=== PATIENT | female | born 1970 | race Caucasian/White ===

== ENCOUNTER 2022-07-14 13:29 | Emergency (ER) | payer OTHER ==
--- OUTSIDE RECORDS SUMMARY | 2022-07-14 13:32 | XMS REPORT | Continuity of Care Document ---
:1970 Author Organization [facility] t Address [address] [place] [address] Care Team Providers Name Role Phone UNKNOWN, REFFERING Primary Care Physician Unavailable Doctor Unassigned, [place] Attending Clinician Unavailable CLAUDINE POTTS Attending Clinician Unavailable MARJAN LAY Attending Clinician Unavailable MARJAN LAY Admitting Clinician Unavailable Payers Payer Name Policy Type Policy Number Effective Date Expiration Date S ource MEDICARE PART A [id number] 2012 \T\ B 00:00:00 Problems Condition Condition Condition Status Onset Resolution Last Treating Co mments Source Name Details Category Date Date Treatment Clinician Date Encounter Encounter Disease Active 2012-08 Overview: Univers for for 0-18 Formattin ity of routine routine 00:00: g of this [place] gynecologi gynecologi 00 note Me dical rodriguez rodriguez might be Branch examinatio examinatio different n n from the original. 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 Per anil Quinn of Syphilis in 1988 noted in [facility]. ICD10 Diagnosis Term [employer] Tobacco Tobacco Disease Active 2012-08 Univers use use 0-18 ity of disorder disorder 00:00: [place] 00 Medical Branch Tubal Tubal Disease Active 2012-08 Univers ligation ligation 0-18 ity of status status 00:00: [place] 00 Medical Branch Irregular Irregular Disease Active 2012-08 Uni vers menstrual menstrual 0-18 ity of cycle cycle 00:00: [place] 00 Medical Branch Drug Drug Disease Active 2012-08 Univers abuse, abuse, 0-18 [place] Pathologic Pathologic Disease Active 2011-08 U nivers fracture fracture 0-05 ity of of of 00:00: [place] vertebrae vertebrae 00 Medi rodriguez Branch Severe Severe 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 ICD10 Diagnosis Term [employer] Allergies, Adverse Reactions, Alerts Allergy Allergy Status Severity Reaction(s) Onset Inactive Treating Comm ents Source Name Type Date Date Clinician NO KNOWN Drug Active Univers ALLERGIE Class ity of S [facility] Social History Social Habit Start Date Stop Date Quantity Comments Source History SDOH University o f Alcohol Frequency [place] M edical Branch History SDOH University o f Alcohol Std [place] Medical Drinks Branch History SDOH University o f Alcohol Binge [place] Medic al Branch History of Cigarette Smoker Universi ty of tobacco use [facility] Alcohol intake 2022-02-22 2022-02-22 Current drinker Unive rsity of 00:00:00 00:00:00 of alcohol [place] Medical (finding) Branch Tobacco use and 2013-05-31 2013-05-31 Smokeless tobacco Un iversity of exposure 00:00:00 00:00:00 non-user [facility] Alcohol Comment 2013-05-31 2013-05-31 occasional Universit y of 00:00:00 00:00:00 [facility] Tobacco Comment 2013-05-31 2013-05-31 1 package of Univers ity of 00:00:00 00:00:00 cigarettes in 2 [facility] ical days Branch Sex Ass[birth year] Universit y of 00:00:00 00:00:00 [facility] Smoking Status Start Date Stop Date Source Occasional tobacco smoker 2013-05-31 00:00:00 Un iversity of [facility] Medications Ordered Filled Start Stop Current Ordering Indication Dosage Frequency Signature Comments Components Source Medication Medication Date Date Medication? Clinician (SIG) Name Name hydrOXYzine 2019- Yes [id number] 25mg Take 1 Univers 25 mg 0-30 tablet by ity of tablet 00:00: mouth [place] 00 every 6 Medical (six) Branch hours as needed for Itching. sod 2018- Yes 1{bottl Use 1 Univers chlor-bicar 1-06 e} Bottle in ity of b-squeez 00:00: each [place] bottle 00 nostril 2 Medical (NEILMED (two) Branch SINUS RINSE times COMPLETE) daily. Use pkdv in hot shower 1 hour before bedtime promethazin 0 Yes 5mL Take 5 mL U nivers e-codeine 1-06 by mouth 4 ity of 6.25-10 00:00: (four) [place] mg/5 mL 00 times Medical syrup daily as Branch needed for Cough. HYDROcodone 2012-08 Yes 1{tbl} Take 1 Tab Univers -acetaminop 0-18 by mouth ity of hen 09:28: every 6 [place] (LORCET) 40 (six) Medical 10-650 mg hours as Branch per tablet needed. ALPRAZOLAM 2012-08 Yes Take by [place] [facility] ers (XANAX 0-18 mouth. ity of ORAL) 09:28: [address] Immunizations Ordered Filled Immunization Date Status Comments [facility] e Immunization Name Name TDAP 2013-02-28 [facility] 00:00:00 [facility] Procedures Procedure Date / Time Performing Clinician Source Performed INSURANCE CORRESPONDENCE 2022-03-26 05:01:00 Doctor Gregory, [facility] [place] [facility] Encounters Start End Encounter Admission Attending Care Care Encounter Source Date/Time Date/Time Type Type Clinicians Facility Department ID 2022-03-26 2022-03-26 Orders Doctor MATA [id number] Univers 00:00:00 00:00:00 Only Unassigned, GERDA [id number] ity of [place] [facility] [id number] [place] [id number] [facility] 009 Branch 2020-06-12 2020-06-12 Emergency X KATLYN WAMADISYN ERT [id number] [facility] 07:29:00 07:29:00 CLAUDINE parikh [facility] Results Test Description Test Time Test Comments Results Result Comments Source Chlamydia/GC Amplification 2017-02-17 09:40:00 Test Item Value Reference Range Interpretation Comme nts Chlamydia trachomatis, [place] (test code = 157652) Negative Negati ve N Neisseria gonorrhoeae, [place] (test code = 191916) Positive Negati ve A [id number] 08:55:00 Test Item Value Reference Range Interpretation Comments [place] (test code = LI) 0.56 mmol/L 0.6-1.2 L HIV [id number] 13:51:00 Test Item Value Reference Range Interpretation Comments HIV 1/2 Antibody Non-Reactive Non-Reactive N HIV1/2 Anti body screen (test code = result indicate s the HIV1/2AB) absence of HIV1 and YGJ9ynkkrztai.H owever, A Non-Reactive screen result does not rule out exposure orinfection. I f an acute infection is suspected, HIV RNA Quantitative is recommended. P24 Antigen (test Non-Reactive Non-Reactive N P24 Ag scr een result code = P24) indicates the a bsence of P24 antigen, which is anindicator of HIV-1 acute infection.Howev er, A Non-Reactive sc reen does not rule o ut exposure or infection.If ac [place] HIV-1 is suspec jamison, HIV RNA Quantit ative is recommended. RPR, [id number] 17:51:00 Test Item Value Reference Range Interpretation Comments RPR (test code = RPR) Non-Reactive Non-Reactive N Thyroid Stimulating Hormone (TSH)2017-02-08 15:01:00 Test Item Value Reference Range Interpretation Comments TSH (test code = TSH) 3.34 mIU/mL 0.270-4.200 N Urinalysis [id number] 13:35:00 Test Item Value Reference Range Interpretation Comments Color (test code = COLOR) Yellow Yellow,Straw,Pl N yellow Clarity (test code = Clear Clear N CLAR) Specific [place] (test 1.005 1.001-1.035 N code = SPGR) pH (test code = PH) 6.5 5.0-9.0 N Ketone (test code = KET) Negative mg/dL Negative N Glucose (test code = Negative mg/dL Negative N GLUCUR) Protein (test code = Negative mg/dL Negative N PROT) Bilirubin (test code = Negative mg/dL Negative N BILI) Occult Blood (test code = Negative Negative N UDOB) Urobilinogen (test code = 0.2 mg/dL 0.2-1.0 N UROB) Nitrite (test code = NIT) Negative Negative N Leuk Esterase (test code Moderate Negative A = LEUK) Micros Exam (test code = Indicated MEXAM) Epithelial Cells (test 6-9 /LPF 0-30 A code = EPI) WBC, Urine (test code = 2-5 /HPF 0-5 A UWBC) RBC, Urine (test code = 0-3 /HPF 0-5 A URBC) Bacteria (test code = Few /HPF BACT) Trichomonas (test code = Moderate /HPF TRICH) [id number] 13:30:00 Test Item Value Reference Range Interpretation Comments Amphetamine (test code Negative Negative N For d iagnostic purposes = AMPH) only, positive results should always b e assessedin conjunctionwith the patient's medic al history,clinica l examination and otherfindings.T o fulfill legal requirements, a more specific altern ate chemical method must be used inorder to obtain a Confirmed yuly lytical result. GC/MS i s the preferred confi rmatory method. Barbiturates (test Negative Negative N code = RENE) Benzodiazepine (test Negative Negative N code = RON) Cocaine (test code = Negative Negative N COCA) Methadone (test code = Negative Negative N MTHD) Opiates (test code = Negative Negative N OPIA) PCP (test code = PCP) Negative Negative N Propoxyphene (test Negative Negative N code = PROPOX) THC (test code = THC) Negative Negative N Comprehensive Metabolic [id number] 13:26:00 Test Item Value Reference Range Interpretation Comments Sodium (test code = 134 mmol/L 135-145 L NA) Potassium (test 4.6 mmol/L 3.5-5.1 N code = K) Chloride (test code 97 mmol/L 98-105 L = CL) Carbon Dioxide 21 mmol/L 22-29 L (test code = CO2) Glucose (test code 107 mg/dL 70-115 N = GLU) Blood Urea Nitrogen 7 mg/dL 6-20 N (test code = BUN) Creatinine (test 0.6 mg/dL 0.5-0.9 N code = CREAT) Calcium (test code 9.7 mg/dL 8.3-10.5 N = CA) Prot Total (test 7.9 g/dL 6.4-8.3 N code = TP) Albumin (test code 4.5 g/dL 3.5-5.2 N = ALB) A/G Ratio (test 1.3 Ratio code = AGRATIO) Globulin (test code 3.4 2.9-3.1 H = GLOB) Bili Total (test 0.4 mg/dL 0.1-0.9 N code = TBIL) Alk Phos (test code 85 U/L 35-104 N = APHOS) AST (test code = 31 U/L 1-32 N AST) ALT (test code = 48 U/L 1-33 H ALT) BUN/Creatinine 11.7 Ratio (test code = BCRATIO) Anion Gap (test 16 mmol/L 7-16 N code = AGAP) Estimated GFR (test >60 eGFR (es timated code = GFR) mL/min/1.73m2 Glomerular Farshad tration Rate) is an est imated value,calculate d from the patient's s jennifer creatinine usin g the MDRD equation.I t is NOT the patient 's actual GFR. The eGFR provides a more clinicallyusefu l measure of kidn ey disease than se rum creatinine alone.This calculation trudy es sex and race into account, if the informationis provided. If th e race is not provided , and the patient isAfrican-Ameri can, multiply by 1.2 12. If sex is not prov ided, and thepatient is female, multipl y by 0.742. Results for patients <18 ye ars ofage have not been validated by th e MDRD study and shoul d be interpretedwith caution.eGFR Re sult Interpretation: eGFR > or = 60 is in t he Normal RangeeGF R < 60 may mean kidney diseaseeGFR < 1 5 may mean kidney failureRange s recommended by the National Kidney Foundation,http ://nkd ep.nih.gov Alcohol/Ethanol, [id number] 13:26:00 Test Item Value Reference Range Interpretation Comments Alcohol, Ethyl <0.01 g/dL 0.00-0.01 N Intoxicated 0 .080 g/dL (test code = ETOH) or more BHCG, Urine, [id number] 13:23:00 Test Item Value Reference Range Interpretation Comments Preg Qual [Ur] (test code = HUHCG) Negative Negative N CBC with [id number] 13:09:00 Test Item Value Reference Range Interpretation Comments WBC (test code = WBC) 12.2 K/cumm 4.4-10.5 H RBC (test code = RBC) 4.31 M/cumm 3.75-5.20 N Hemoglobin (test code = HGB) 14.0 gm/dL 12.2-14.8 N Hematocrit (test code = HCT) 43.0 % 36.5-44.4 N MCV (test code = MCV) 100.0 fL 80-100 N MCH (test code = MCH) 32.4 pg 27.0-32.5 N MCHC (test code = MCHC) 32.4 g/dL 32.0-37.5 N RDW (test code = RDW) 14.8 % 11.5-14.5 H Platelet Count (test code = 333 K/cumm 140-440 N PLTCT) MPV (test code = MPV) 9.6 fL Diff Method (test code = DIFFM) Auto Neutrophil (test code = NEUT) 63.5 % 36-70 N Lymphocyte (test code = LYMPH) 26.4 % 12-44 N Monocyte (test code = MONO) 5.4 % 0-11 N Eosinophil (test code = EOS) 4.0 % 0-7 N Basophil (test code = BASO) 0.8 % 0-2 N Neutro Abs (test code = ANEUT) 7.7 K/cumm 1.6-7.4 H Lymph Abs (test code = ALYMPH) 3.2 K/cumm 0.5-4.6 N [place] Abs (test code = AMONO) 0.7 K/cumm 0.0-1.2 N Eos Abs (test code = AEOS) 0.49 K/cumm 0.00-0.74 N Baso Abs (test code = ABASO) 0.1 K/cumm 0.00-0.21 N
[2022-07-14] MEDS ORDERED: KETOROLAC 30 MG/ML INJ ONE (14:42)
[2022-07-14] MEDS ORDERED: CYCLOBENZAPRINE 10 MG TAB ONE (14:42)
--- NOTE | 2022-07-14 16:13 | EDPHYS ---
Physician Documentation [facility] Name: Lakshmi Sarmiento Age: 52 yrs Sex: Female : 1970 Arrival Date: 07/14/2022 Time: 13:29 Bed 10 Private MD: KISHORE Physician Sean Summers HPI: 07/14 13:50 This 52 yrs old Female presents to ER via Ambulatory with complaints of Back Pain. jh7 13:50 The patient presents with pain that is chronic, with no known mechanism of injury. The jh7 symptoms are located in the low back, coccyx area. Onset: The symptoms/episode began/occurred this morning. The pain does not radiate. Associated signs and symptoms: The patient has no apparent associated signs or symptoms. Patient reports a back injury in 2011 and states that she has had pain since then. Reports that the pain starts at her lower back and goes to her tailbone. No loss of bowel or bladder, numbness, or tingling.. Historical: - Allergies: 13:49 No Known Allergies; iw - Home Meds: 13:49 None [Active]; iw - PMHx: 13:49 back pain; iw - PSHx: 13:49 back; tubal ligation; iw - Social history:: Smoking status: Reported history of juuling and/or vaping. ROS: 13:50 Constitutional: Negative for fever, chills, and weight loss, Eyes: Negative for injury, jh7 pain, redness, and discharge, ENT: Negative for injury, pain, and discharge, Neck: Negative for injury, pain, and swelling, Cardiovascular: Negative for chest pain, palpitations, and edema, Respiratory: Negative for shortness of breath, cough, wheezing, and pleuritic chest pain, MS/Extremity: Negative for injury and deformity, Skin: Negative for injury, rash, and discoloration, Neuro: Negative for headache, weakness, numbness, tingling, and seizure. 13:50 Back: Positive for pain with movement, Negative for injury or acute deformity, decreased range of motion. 13:50 All other systems are negative. Exam: 13:50 Constitutional: This is a well developed, well nourished patient who is awake, alert, jh7 and in no acute distress. Head/Face: Normocephalic, atraumatic. Cardiovascular: Regular rate and rhythm with a normal S1 and S2. No gallops, murmurs, or rubs. Normal PMI, no JVD. No pulse deficits. Respiratory: Lungs have equal breath sounds bilaterally, clear to auscultation and percussion. No rales, rhonchi or wheezes noted. No increased work of breathing, no retractions or nasal flaring. Abdomen/GI: Soft, non-tender, with normal bowel sounds. No distension or tympany. No guarding or rebound. No evidence of tenderness throughout. Back: No spinal tenderness. No costovertebral tenderness. Full range of motion. Skin: Warm, dry with normal turgor. Normal color with no rashes, no lesions, and no evidence of cellulitis. MS/ Extremity: Pulses equal, no cyanosis. Neurovascular intact. Full, normal range of motion. Neuro: Awake and alert, GCS 15, oriented to person, place, time, and situation. Motor strength 5/5 in all extremities. Sensory grossly intact. Normal gait. Vital Signs: 13:47 BP 152 / 79; Pulse 95; Resp 16; Temp 97.9; Pulse Ox 100% on R/A; iw MDM: 13:49 Patient medically screened. [facility] 17:15 Differential diagnosis: ruptured disc, Chronic pain. Data reviewed: vital signs, nurses [facility] notes, radiologic studies, plain films. Data interpreted: Pulse oximetry: is 100 %. Interpretation: normal. Counseling: I had a detailed discussion with the patient and/or guardian regarding: the historical points, exam findings, and any diagnostic results supporting the discharge/admit diagnosis, to return to the emergency department if symptoms worsen or persist or if there are any questions or concerns that arise at home. ED course: Patient witnessed leaving the ER shortly after pain medication was administered. Left before receiving discharge paperwork.. 07/14 14:04 Order name: XRAY Lumbar Spine (3 Views); Complete Time: 17:13 [facility] 07/14 14:04 Order name: XRAY Sacrum And Coccyx; Complete Time: 17:13 [facility] Administered Medications: 15:18 Drug: Ketorolac 60 mg Route: IM; Site: left ventrogluteal; iw 15:18 Drug: Flexeril (cyclobenzaprine) 10 mg Route: PO; iw Disposition Summary: 07/14/22 16:13 Discharge Ordered Location: Home [facility] Problem: new jh7 Symptoms: have improved jh7 Condition: Stable jh7 Diagnosis - Low back pain 7 Followup: [facility] - With: Private Physician - When: 2 - 3 days - Reason: Recheck today's complaints Discharge Instructions: - Discharge Summary Sheet 7 - Chronic Back Pain [facility] Forms: - Medication Reconciliation Form 7 - Thank You Letter [facility] Addendum: 07/17/2022 07:58 Co-signature as Attending Physician, Sean Summers MD I agree with the assessment and c pacheco plan of care. Signatures: Dispatcher [employer] Sean Palomino MD MD cha Williams, Irene, RN RN iw Padmiin Meyer FNP FNP [facility]
--- NOTE | 2022-07-14 16:13 | ER ---
Nurse's Notes [facility] Name: Lakshmi Sarmiento Age: 52 yrs Sex: Female : 1970 Arrival Date: 07/14/2022 Time: 13:29 Bed 10 Private MD: Diagnosis: Low back pain Presentation: 07/14 13:47 Chief complaint: Patient states: previous back injury and chronic, I think I pulled it iw or have a pinched nerve, it's not my usual pain , low back pain above tailbone since 0430 today. Coronavirus screen: At this time, the client does not indicate any symptoms associated with coronavirus-19. Ebola Screen: Patient negative for fever greater than or equal to 101.5 degrees Fahrenheit, and additional compatible Ebola Virus Disease symptoms Patient denies exposure to infectious person. Patient denies travel to an Ebola-affected area in the 21 days before illness onset. No symptoms or risks identified at this time. Initial Sepsis Screen: Does the patient meet any 2 criteria? No. Patient's initial sepsis screen is negative. Does the patient have a suspected source of infection? No. Patient's initial sepsis screen is negative. Risk Assessment: Do you want to hurt yourself or someone else? Patient reports no desire to harm self or others. Onset of symptoms was July 14, 2022. 13:47 Method Of Arrival: Ambulatory iw 13:47 Acuity: SARBJIT 4 iw Historical: - Allergies: 13:49 No Known Allergies; iw - Home Meds: 13:49 None [Active]; iw - PMHx: 13:49 back pain; iw - PSHx: 13:49 back; tubal ligation; iw - Social history:: Smoking status: Reported history of juuling and/or vaping. Vital Signs: 13:47 BP 152 / 79; Pulse 95; Resp 16; Temp 97.9; Pulse Ox 100% on R/A; iw ED Course: 13:29 Patient arrived in ED. as 13:49 Triage completed. iw 13:49 Padmini Meyer FNP is PHCP. [facility] 13:49 Sean Summers MD is Attending Physician. [facility] 13:50 Arm band placed on. iw 14:34 Antonia Noonan, RN is Primary Nurse. iw 15:00 XRAY Lumbar Spine (3 Views) In Process Unspecified. EDMS 15:00 XRAY Sacrum And Coccyx In Process Unspecified. EDMS Administered Medications: 15:18 Drug: Ketorolac 60 mg Route: IM; Site: left ventrogluteal; iw 15:18 Drug: Flexeril (cyclobenzaprine) 10 mg Route: PO; iw Outcome: 16:13 Discharge ordered by MD. anne 16:39 Patient left the ED. iw Signatures: Dispatcher [employer] Emelia Cr Irene, RN RN iw Padmini Meyer FNP FNP jh7
--- NOTE | 2022-07-14 16:35 | RAD REPORT ---
EXAM DESCRIPTION: RAD - Lumbar Spine 3 Views - 07/14/2022 2:58 pm CLINICAL HISTORY: PAIN Radiculopathy COMPARISON: No comparisons FINDINGS: There is extensive hardware spanning the thoracolumbar spine. No hardware loosening or inf ection findings are seen. Minimal anterolisthesis is seen of L4 on 5. Mild facet hypertrophy L5-S1. A ortic atherosclerosis.
--- NOTE | 2022-07-14 16:40 | RAD REPORT ---
EXAM DESCRIPTION: RAD - Sacrum And Coccyx - 07/14/2022 2:58 pm CLINICAL HISTORY: PAIN COMPARISON: Lumbar Spine 3 Views dated 07/14/2022 FINDINGS: Sacroiliac joints are symmetric. No ankylosis or erosions. No evidence of fracture or disl ocation.
[2022-07-14 16:54] VITALS: BP 152/79; TEMP 97.9; O2SAT 100
== END 2022-07-14 16:39 | disposition home or self-care (01) ==
LOC: ER 13:29
DX: M54.50 Low back pain, unspecified (principal)
CPT/HCPCS: 72100; 72220; 96372; 99283

== ENCOUNTER 2024-10-15 04:28 | Emergency (ER) | payer OTHER ==
--- OUTSIDE RECORDS SUMMARY | 2024-10-15 04:32 | XMS REPORT | Continuity of Care Document ---
Author Name Unknown Address [address] [place] [address] Donaldo. [address] th[address] Address [address] [facility] Donaldo. [address] [place] [address] Care Team Providers Care Mud Analysis Operator Name Role Phone Unknown Primary Care Physician UnavailGera Pagan Attending Clinician [phone] PUSHPA SY Attending Clinician Unavailable Doctor Unassigned, Sehili Attending Clinician U CLAUDINE Smith Attending Clinician Unavailab MARJAN Martin Attending Clinician Unavailable MARJAN LAY Admitting Clinician Unavailable Payers Payer Name Policy Type Policy Number Effective Date Expirati on Date Source AETNA [place] DUAL 2 [id number] 2022 00:00:00 MEDICAID-NHIC 6 [id number] 2022 00:00:00 MEDICARE PART A \T\ B [id number] 2012 00:00:00 Problems Condition Name Condition Details Condition Category Status Onset Date Resolution Date Last Treatment Date Treating Clinician Comments Source Encounter for routine gynecologi rodriguez examinatio n Encounter for routine gynecologi rodriguez examinatio n Disease Active 2012-08 00:00: 00 Overview: Formattin g of this note might be different from the original. 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 Per anil Quinn of Syphilis in 1988 noted in [facility]. 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 Tobacco use disorder Tobacco use disorder Disease Active 2012-08 00:00: 00 [facility] Tubal ligation status Tubal ligation status Disease Active 2012-08 00:00: 00 [facility] Irregular menstrual cycle Irregular menstrual cycle Disease Active 2012-08 00:00: 00 [facility] Drug abuse, marijuana Drug abuse, marijuana Disease Active 2012-08 00:00: 00 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 Severe manic bipolar I disorder with psychotic features Severe manic bipolar I disorder with psychotic features Disease Active 2006-08 00:00: 00 Overview: Formattin g of this note might be different from the original. 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 Paranoid state Paranoid state Disease Active 2006-08 00:00: 00 Overview: Formattin g of this note might be different from the original. 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 Retained foreign body Retained foreign body Disease Resolve d 2012-08 00:00: 00 2013-05-31 00:00:00 2013-05-31 10:28:39 [facility] Allergies, Adverse Reactions, Alerts Allergy Name Allergy Type Status Severity Reaction(s) Onset Date Inactive Date Treating Clinician Comments Source NO KNOWN ALLERGIE S Drug Class Active [facility] Social History Social Habit Start Date Stop Date Quantity Comments Source History SDOH Alcohol Frequency [facility] History SDOH Alcohol Std Drinks [facility] History SDOH Alcohol Binge [facility] of tobacco use Cigarette Smoker [facility] Alcohol intake 2022-02-22 00:00:00 2022-02-22 00:00:00 Current drinker of alcohol (finding) [facility] History of Social function 2022-02-22 00:00:00 2022-02-22 00:00:00 [facility] Exposure to SARS-CoV-2 (event) 2021-07-11 00:00:00 2021-08-10 12:24:00 Not sure [facility] Tobacco use and exposure 2013-05-31 00:00:00 2013-05-31 00:00:00 Smokeless tobacco non-user [facility] Alcohol Comment 2013-05-31 00:00:00 2013-05-31 00:00:00 occasional [facility] Tobacco Comment 2013-05-31 00:00:00 2013-05-31 00:00:00 1 package of cigarettes in 2 days [facility] Sex assigned at 1970 00:00:00 1970 00:00:00 [facility] Smoking Status Start Date Stop Date Source Tobacco smoking consumption unknown [facility] Occasional tobacco smoker 2013-05-31 00:00:00 [facility] Medications Ordered Medication Name Filled Medication Name Start Date Stop Date Current Medication? Ordering Clinician Indication Dosage Frequency Signature (SIG) Comments Components Source hydrOXYzine 25 mg tablet 2019-08 00:00: 00 Yes [id number] 25mg Take 1 tablet by mouth every 6 (six) hours as needed for Itching. [facility] sod chlor-bicar b-squeez bottle (NEILMED SINUS RINSE COMPLETE) pkdv 08-19 00:00: 00 Yes 1{bottl e} Use 1 Bottle in each nostril 2 (two) times daily. Use in hot shower [address] [facility] promethazin e-codeine 6.25-10 mg/5 mL syrup 08-19 00:00: 00 Yes 5mL Take 5 mL by mouth 4 (four) times daily as needed for Cough. [facility] HYDROcodone -acetaminop hen (LORCET) 10-650 mg per tablet 2012-08 09:28: 40 Yes 1{tbl} Take 1 Tab by mouth every 6 (six) hours as needed. [facility] ALPRAZOLAM (XANAX ORAL) 2012-08 09:28: 40 Yes Take by mouth. [facility] Procedures Procedure Date / Time Performed Performing Clinician Source INSURANCE CORRESPONDENCE 2022-03-26 05:01:00 Doc tor Unassigned, Sehili [facility] BI DIAGNOSTIC MAMMOGRAM BILATERAL 2012-01-23 18:53:00 Gera Melendez [facility] Encounters Start Date/Time End Date/Time Encounter Type Admission Type Attending Clinicians Care Facility Care Department Encounter ID Source 2012-01-23 00:00:00 2024-09-28 05:23:16 Orders Only Gera Melendez [facility] [id number] [facility] 2023-01-18 13:00:00 2023-01-18 13:00:00 Outpatient PUSHPA SYSEY [id number] Xi Alvarez 2022-12-21 13:30:00 2022-12-21 13:30:00 Outpatient PUSHPA SY [id number] Xi Alvarez 2022-03-26 00:00:00 2022-03-26 00:00:00 Orders Only Doctor Unassigned, Sehili [facility] [id number] [facility] 2020-06-12 07:29:00 2020-06-12 07:29:00 Emergency X ROCIO POTTSRA [facility] ERT [id number] [facility] Results Test Description Test Time Test Comments Results Result Co mments Source [id number] 08:55:00* Test Item Value Reference Range Interpretation Comme nts [place] (test code = LI) 0.56 mmol/L 0.6-1.2 L HIV [id number] 13:51:00* Test Item Value Reference Range Interpretation Comme nts HIV 1/2 Antibody (test code = HIV1/2AB) Non-Reactive Non-Reactive N HIV1/2 Antibody screen result indicates the absence of HIV1 and [id number].However, A Non-Reactive screen result does not rule out exposure orinfection. If an acute infection is suspected, HIV RNA Quantitative is recommended. P24 Antigen (test code = P24) Non-Reactive Non-Reactive N P24 Ag screen re sult indicates the absence of P24 antigen, which is anindicator of HIV-1 acute infection.However, A Non-Reactive screen does not rule out exposure or infection.If acute HIV-1 is suspected, HIV RNA Quantitative is recommended. RPR, [id number] 17:51:00* Test Item Value Reference Range Interpretation Comme nts RPR (test code = RPR) Non-Reactive Non-Reactive N Thyroid Stimulating Hormone (TSH)2017-02-08 15:01:00* Test Item Value Reference Range Interpretation Comme nts TSH (test code = TSH) 3.34 mIU/mL 0.270-4.200 N Urinalysis [id number] 13:35:00* Test Item Value Reference Range Interpretation Comme nts Color (test code = COLOR) Yellow Yellow ,Straw,Pl yellow N Clarity (test code = CLAR) Clear Clear N Specific [place] (test code = SPGR) 1.005 1.001-1.035 N pH (test code = PH) 6.5 5.0-9.0 N Ketone (test code = KET) Negative mg/dL Negative N Glucose (test code = GLUCUR) Negative mg/dL Negative N Protein (test code = PROT) Negative mg/dL Negative N Bilirubin (test code = BILI) Negative mg/dL Negative N Occult Blood (test code = UDOB) Negative Negative N Urobilinogen (test code = UROB) 0.2 mg/dL 0.2-1.0 N Nitrite (test code = NIT) Negative Negative N Leuk Esterase (test code = LEUK) Moderate Negative A Micros Exam (test code = MEXAM) Indicated Epithelial Cells (test code = EPI) 6-9 /LPF 0-30 A WBC, Urine (test code = UWBC) 2-5 /HPF 0-5 A RBC, Urine (test code = URBC) 0-3 /HPF 0-5 A Bacteria (test code = BACT) Few /HPF Trichomonas (test code = TRICH) Moderate /HPF [id number] 13:30:00* Test Item Value Reference Range Interpretation Comme nts Amphetamine (test code = AMPH) Negative Negative N For diagnostic p urposes only, positive results should always be assessedin conjunctionwith the patient's medical history,clinical examination and otherfindings.To fulfill legal requirements, a more specific alternate chemical methodmust be used inorder to obtain a Confirmed analytical result. GC/MS is the preferred confirmatory method. Barbiturates (test code = RENE) Negative Negative N Benzodiazepine (test code = RON) Negative Negative N Cocaine (test code = COCA) Negative Negative N Methadone (test code = MTHD) Negative Negative N Opiates (test code = OPIA) Negative Negative N PCP (test code = PCP) Negative Negative N Propoxyphene (test code = PROPOX) Negative Negative N THC (test code = THC) Negative Negative N Alcohol/Ethanol, [id number] 13:26:00* Test Item Value Reference Range Interpretation Comme nts Alcohol, Ethyl (test code = ETOH) <0.01 g/dL 0.00-0.01 N Intoxicated 0 .080 g/dL or more Comprehensive Metabolic [id number] 13:26:00* Test Item Value Reference Range Interpretation Comme nts Sodium (test code = NA) 134 mmol/L 135-145 L Potassium (test code = K) 4.6 mmol/L 3.5-5.1 N Chloride (test code = CL) 97 mmol/L 98-105 L Carbon Dioxide (test code = CO2) 21 mmol/L 22-29 L Glucose (test code = GLU) 107 mg/dL 70-115 N Blood Urea Nitrogen (test code = BUN) 7 mg/dL 6-20 N Creatinine (test code = CREAT) 0.6 mg/dL 0.5-0.9 N Calcium (test code = CA) 9.7 mg/dL 8.3-10.5 N Prot Total (test code = TP) 7.9 g/dL 6.4-8.3 N Albumin (test code = ALB) 4.5 g/dL 3.5-5.2 N A/G Ratio (test code = AGRATIO) 1.3 Ratio Globulin (test code = GLOB) 3.4 2.9-3.1 H Bili Total (test code = TBIL) 0.4 mg/dL 0.1-0.9 N Alk Phos (test code = APHOS) 85 U/L 35-104 N AST (test code = AST) 31 U/L 1-32 N ALT (test code = ALT) 48 U/L 1-33 H BUN/Creatinine Ratio (test code = BCRATIO) 11.7 Anion Gap (test code = AGAP) 16 mmol/L 7-16 N Estimated GFR (test code = GFR) >60 mL/min/1.73m2 eGFR (estimated Glomerular Filtration Rate) is an estimated value,calculated from the patient's serum creatinine using the MDRD equation.It is NOT the patient's actual GFR. The eGFR provides a more clinicallyuseful measure of kidney disease than serum creatinine alone.This calculation takes sex and race into account, if the informationis provided. If the race is not provided, and the patient isAfrican-B[place], multiply by 1.212. If sex is not provided, and thepatient is female, multiply by 0.742. Results for patients <18 years ofage have not been validated by the MDRD study and should be interpretedwith caution.eGFR Result Interpretation:eGFR > or = 60 is in the Normal RangeeGFR < 60 may mean kidney diseaseeGFR < 15 may mean kidney failureRanges recommended by the National Kidney Foundation,http://nkdep .nih.gov BHCG, Urine, [id number] 13:23:00* Test Item Value Reference Range Interpretation Comme nts Preg Qual [Ur] (test code = HUHCG) Negative Negative N CBC with [id number] 13:09:00* Test Item Value Reference Range Interpretation Comme nts WBC (test code = WBC) 12.2 K/cumm [...] 11.5-14.5 H Platelet Count (test code = PLTCT) 333 K/cumm 140-440 N MPV (test code = MPV) 9.6 fL [...] code = ALYMPH) 3.2 K/cumm 0.5-4.6 N [place] Abs (test code = AMONO) 0.7 K/cumm 0.0-1.2 N Eos Abs (test code = AEOS) 0.49 K/cumm 0.00-0.74 N Baso Abs (test code = ABASO) 0.1 K/cumm 0.00-0.21 N DIGITAL DIAGNOSTIC [id number] 21:22:00DIGITAL MAMMOGRAM, BILATERAL*.*.*.*.*.*.*.*.*.*.*.*.*.*FINAL*.*.*.*.*.*.*.*.*.*.*.*.*.*.*History: Right breast pain, thickening.Computer-aided detection(CAD)utilized. No comparison images were available at the time of this reading. Bilateral Breast Findings:There are scattered fibroglandular densities (25% - 50% fibroglandular). No significant masses, calcifications or other abnormalities are seen. IMPRESSION:BILATERAL BREASTSNegative, no evidence of malignancy. Normal interval follow-up is recommended in 12 months. OVERALL ASSESSMENT - CATEGORY 1 - NEGATIVEEND OF IMPRESSIONRADUnHCA [facility]
--- NOTE | 2024-10-15 06:06 | EDPHYS ---
Physician Documentation [facility] Name: Lakshmi Sarmiento Age: 54 yrs Sex: Female : 1970 Arrival Date: 10/15/2024 Time: 04:28 Bed 7 Private MD: ED Physician Carlos Millan HPI: 10/15 06:01 This 54 yrs old Female presents to ER via Ambulatory with complaints of Back Injury. sp3 06:01 54-year-old female with history of back injury with titanium rods in the thoracic sp3 spine, chronic back pain, now presents to the ED after "tweaking it" while at work. Her work made her come into the ED for evaluation. She denies any bowel or bladder loss of control, numbness or tingling only states she has got muscular pain and low back pain. She denies headache, fever, chest pain, shortness of breath, syncope, or any other signs or symptoms on ROS at this time.. 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 - Infectious Disease History:: Denies. - Social history:: Smoking status: Patient denies any tobacco usage or history of. ROS: 06:02 Constitutional: Negative for fever, chills, and weight loss, Eyes: Negative for injury, sp3 pain, redness, and discharge, ENT: Negative for injury, pain, and discharge, Neck: Negative for injury, pain, and swelling, Cardiovascular: Negative for chest pain, palpitations, and edema, Respiratory: Negative for shortness of breath, cough, wheezing, and pleuritic chest pain, Abdomen/GI: Negative for abdominal pain, nausea, vomiting, diarrhea, and constipation, : Negative for injury, bleeding, discharge, and swelling, MS/Extremity: Negative for injury and deformity, Skin: Negative for injury, rash, and discoloration, Neuro: Negative for headache, weakness, numbness, tingling, and seizure, Psych: Negative for depression, anxiety, suicide ideation, homicidal ideation, and hallucinations, Allergy/Immunology: Negative for hives, rash, and allergies, Endocrine: Negative for neck swelling, polydipsia, polyuria, polyphagia, and marked weight changes, 06:02 All other systems are negative, Exam: 06:02 Constitutional: This is a well developed, well nourished patient who is awake, alert, sp3 and in no acute distress. Head/Face: Normocephalic, atraumatic. Eyes: Pupils equal round and reactive to light, extra-ocular motions intact. Lids and lashes normal. Conjunctiva and sclera are non-icteric and not injected. Cornea within normal limits. Periorbital areas with no swelling, redness, or edema. Neck: Trachea midline, no thyromegaly or masses palpated, and no cervical lymphadenopathy. Supple, full range of motion without nuchal rigidity, or vertebral point tenderness. No Meningismus. Chest/axilla: Normal chest wall appearance and motion. Nontender with no deformity. No lesions are appreciated. Cardiovascular: Regular rate and rhythm with a normal S1 and S2. No gallops, murmurs, or rubs. Normal PMI, no JVD. No pulse deficits. Respiratory: Lungs have equal breath sounds bilaterally, clear to auscultation and percussion. No rales, rhonchi or wheezes noted. No increased work of breathing, no retractions or nasal flaring. Abdomen/GI: Soft, non-tender, with normal bowel sounds. No distension or tympany. No guarding or rebound. No evidence of tenderness throughout. Skin: Warm, dry with normal turgor. Normal color with no rashes, no lesions, and no evidence of cellulitis. MS/ Extremity: Pulses equal, no cyanosis. Neurovascular intact. Full, normal range of motion. Neuro: Awake and alert, GCS 15, oriented to person, place, time, and situation. Cranial nerves II-XII grossly intact. Motor strength 5/5 in all extremities. Sensory grossly intact. Cerebellar exam normal. Normal gait. Psych: Awake, alert, with orientation to person, place and time. Behavior, mood, and affect are within normal limits. 06:02 Back: Pain to palpation in the musculature in worsening pain on flexion of the lower back., Vital Signs: 04:43 BP 141 / 90; Pulse 93; Resp 20; Temp 97.6; Pulse Ox 100% ; Weight 83.91 kg; Height 5 vc1 ft. 4 in. ; Pain 10/10; 06:01 BP 139 / 87; Pulse 90; Resp 18; Temp 97.6; Pulse Ox 100% ; Pain 9/10; bm8 04:43 Body Mass Index 31.75 (83.91 kg, 162.56 cm) vc1 04:43 Pain Scale: Adult vc1 06:01 Pain Scale: Adult bm8 [place] Coma Score: 04:43 Eye Response: spontaneous(4). Motor Response: obeys commands(6). Verbal Response: vc1 oriented(5). Total: 15. 06:01 Eye Response: spontaneous(4). Motor Response: obeys commands(6). Verbal Response: bm8 oriented(5). Total: 15. Trauma Score (Adult): 04:43 Eye Response: spontaneous(1); Verbal Response: oriented(1); Motor Response: obeys vc1 commands(2); Systolic BP: > 89 mm Hg(4); Respiratory Rate: 10 to 29 per min(4); Cathie Score: 15; Trauma Score: 12 MDM: 04:57 Medical Screening Exam initiated sp3 06:03 Data reviewed: vital signs, old medical records, radiologic studies. ED course: sp3 54-year-old female with acute on chronic back pain. LS-spine x-rays demonstrate titanium in good position with no disruption of joint spaces. L4-L5 joint space narrowing noted. Neurologically patient has no concerning symptoms. Differential diagnosis includes radicular disease versus musculoskeletal inflammation versus muscle strain. Will treat with tramadol and diclofenac and give 1 day work note and follow-up with PCP.. 10/15 05:28 Order name: Lumbar Spine (3 Views) XRAY sp3 Administered Medications: No medications were administered Disposition Summary: 10/15/24 06:05 Discharge Ordered Notes: Location: Home sp3 Condition: Stable sp3 Diagnosis - Acute on chronic low back pain sp3 Followup: sp3 - With: Private Physician - When: Upon discharge from the Emergency Department - Reason: Continuance of care Discharge Instructions: - Discharge Summary Sheet sp3 - Chronic Back Pain sp3 Forms: - Medication Reconciliation Form sp3 - Antibiotic Education sp3 - Prescription Opioid Use sp3 - Patient Portal Instructions sp3 - Leadership Thank You Letter sp3 Prescriptions: - Diclofenac Sodium 75 mg Oral Tablet Sustained Release - take 1 tablet ORAL route 2 times per day; 30 tablet; Refills: 0, Product sp3 Selection Permitted - Tramadol 50 mg Oral Tablet - take 1 tablet ORAL route every 8 hours as needed; 12 tablet; Refills: 0, sp3 Product Selection Permitted Signatures: Dispatcher [employer] Carlos Tong MD MD sp3 Humaira Siegel RN RN vc1 Keo Arnold RN RN bm8
--- NOTE | 2024-10-15 06:06 | ER ---
Nurse's Notes [facility] Name: Lakshmi Sarmiento Age: 54 yrs Sex: Female : 1970 Arrival Date: 10/15/2024 Time: 04:28 Bed 7 Private MD: Diagnosis: Acute on chronic low back pain Presentation: 10/15 04:41 Chief complaint: Patient states: C/o severe lower back pain that started yesterday. vc1 States has a history of back surgery in 2011. Hurts worse when sitting. Care prior to arrival: None. Mechanism of Injury: No Mechanism of Injury. 04:41 Acuity: SARBJIT 3 vc1 04:41 Method Of Arrival: Ambulatory vc1 06:05 Coronavirus screen: At this time, the client does not indicate any symptoms associated bm8 with coronavirus-19. Ebola Screen: Patient negative for fever greater than or equal to 101.5 degrees Fahrenheit, and additional compatible Ebola Virus Disease symptoms Patient denies exposure to infectious person. Patient denies travel to an Ebola-affected area in the 21 days before illness onset. No symptoms or risks identified at this time. Initial Sepsis Screen: Does the patient meet any 2 criteria? No. Patient's initial sepsis screen is negative. Does the patient have a suspected source of infection? No. Patient's initial sepsis screen is negative. Risk Assessment: Do you want to hurt yourself or someone else? Patient reports no desire to harm self or others. Onset of symptoms is unknown. 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 - Infectious Disease History:: Denies. - Social history:: Smoking status: Patient denies any tobacco usage or history of. Screenin:01 [facility] ED Fall Risk Assessment (Adult) History of falling in the last 3 months, bm8 including since admission No falls in past 3 months (0 pts) Confusion or Disorientation No (0 pts) Intoxicated or Sedated No (0 pts) Impaired Gait No (0 pts) Mobility Assist Device Used No (0 pt) Altered Elimination No (0 pt) Score/Fall Risk Level 0 - 2 = Low Risk Oriented to surroundings, Maintained a safe environment, Educated pt \T\ family on fall prevention, incl call for assistance when getting out of bed, Assessed \T\ reinforced patient's understanding of fall precautions, Hourly rounding (assess needs \T\ fall precautionary measures) done, Used ambulatory aids as needed (educated on \T\ assisted with), Used gait belt as appropriate. Abuse screen: Denies threats or abuse. Nutritional screening: No deficits noted. Tuberculosis screening: No symptoms or risk factors identified. Assessment: 04:45 General: Appears uncomfortable, Behavior is anxious. Pain: Complains of pain in back vc1 Pain radiates to right foot and left foot Pain at worst was 10 out of 10 on a pain scale. Quality of pain is described as shooting, Pain began pain started yesterday. 06:01 Reassessment: Patient and/or family updated on plan of care and expected duration. Pain bm8 level reassessed. Patient is alert, oriented x 3, equal unlabored respirations, skin warm/dry/pink. Pain: Complains of pain in left foot and right foot and back Pain currently is 9 out of 10 on a pain scale. Neuro: No deficits noted. Level of Consciousness is awake, alert, obeys commands, Oriented to person, place, time, situation, Appropriate for age. Cardiovascular: Denies chest pain, Capillary refill < 3 seconds in bilateral fingers. Respiratory: Airway is patent Respiratory effort is even, unlabored, Respiratory pattern is regular, symmetrical. Musculoskeletal: Reports pain in left foot and right foot and back. Vital Signs: 04:43 BP 141 / 90; Pulse 93; Resp 20; Temp 97.6; Pulse Ox 100% ; Weight 83.91 kg; Height 5 vc1 ft. 4 in. ; Pain 10/10; 06:01 BP 139 / 87; Pulse 90; Resp 18; Temp 97.6; Pulse Ox 100% ; Pain 9/10; bm8 04:43 Body Mass Index 31.75 (83.91 kg, 162.56 cm) vc1 04:43 Pain Scale: Adult vc1 06:01 Pain Scale: Adult bm8 Cathie Coma Score: 04:43 Eye Response: spontaneous(4). Motor Response: obeys commands(6). Verbal Response: vc1 oriented(5). Total: 15. 06:01 Eye Response: spontaneous(4). Motor Response: obeys commands(6). Verbal Response: bm8 oriented(5). Total: 15. Trauma Score (Adult): 04:43 Eye Response: spontaneous(1); Verbal Response: oriented(1); Motor Response: obeys vc1 commands(2); Systolic BP: > 89 mm Hg(4); Respiratory Rate: 10 to 29 per min(4); [place] Score: 15; Trauma Score: 12 ED Course: 04:34 Patient arrived in ED. jj6 04:43 Triage completed. vc1 04:57 Carlos Millan MD is Attending Physician. sp3 05:55 Lumbar Spine (3 Views) XRAY In Process Unspecified. EDCO 06:00 Keo Arnold, RN is Primary Nurse. bm8 06:01 Arm band placed on right wrist. bm8 06:01 Patient has correct armband on for positive identification. Bed in low position. Call bm8 light in reach. Side rails up X 1. Provided Education on: post er care. Client placed on continuous cardiac and pulse oximetry monitoring. NIBP monitoring applied. Pulse ox on. NIBP on. 06:01 No provider procedures requiring assistance completed. Patient did not have IV access bm8 during this emergency room visit. Administered Medications: No medications were administered Medication: 06:01 VIS not applicable for this client. bm8 Outcome: 06:01 Discharged to home ambulatory, bm8 06:01 Condition: stable 06:01 Discharge instructions given to patient, family, Instructed on discharge instructions, follow up and referral plans. Demonstrated understanding of instructions, follow-up care, medications, Prescriptions given X 1, 06:05 Discharge ordered by . sp3 06:18 Prescriptions given X 2, bm8 06:19 Patient left the ED. bm8 Signatures: Dispatcher [employer] EDCO Carlos Millan MD MD sp3 Padmini Liu jj6 Humaira Siegel RN RN vc1 Keo Arnold, RN RN bm8
[2024-10-15 06:23] VITALS: TEMP 97.6; O2SAT 100
[2024-10-15 06:24] VITALS: BP 139/87
--- NOTE | 2024-10-15 06:44 | RAD REPORT ---
EXAM: XR Lumbosacral Spine, 2 or 3 Views CLINICAL HISTORY: The patient is 54 years old and is Female; Lower back pain. TECHNIQUE: Three views of the lumbar spine and sacrum. COMPARISON: No relevant prior studies available. FINDINGS: Vertebrae: 4 mm anterolisthesis L4 on L5. Degenerative facet arthropathy lower lumbar spine. Thoracolumbar spinal hardware, T9-L3. No acute fracture. Sacrum/coccyx: Unremarkable as visualized. No acute fracture. Disc spaces: L4-5 degenerative disc disease. Soft tissues: Unremarkable. IMPRESSION: 1. 4 mm anterolisthesis L4 on L5. L4-5 degenerative disc disease. 2. Degenerative facet arthropathy lower lumbar spine. 3. Thoracolumbar spinal hardware. Electronically signed by: Philly Kulkarni MD 10/15/2024 06:37 AM [facility] V2 Due to temporary technical issues with the PACS/[employer] reporting system, reports are being gerardo d by the in-house radiologist without review as a courtesy to ensure prompt reporting the interpreting radiologist is fully responsible for the content of the report. Transcribed Date/Time: 10/15/2024 6:44 AM
== END 2024-10-15 06:19 | disposition home or self-care (01) ==
LOC: ER 04:28
DX: M54.50 Low back pain, unspecified (principal)
CPT/HCPCS: 72100